=== PATIENT | female | born 1945 | race Caucasian/White ===

== ENCOUNTER 2018-01-03 18:08 | Inpatient (IN) | payer OTHER ==
[~2018-01-03] VITALS: Ht 157.5 cm; Wt 49.9 kg
[~2018-01-03 18:08] MED LIST: CIPRO500 MG; EVISTA60 MG PO; KLONOPIN1 MG/TAB PO; MICARDIS HCT1 UDTAB PO; NORVASC10 MG PO; PLAVIX75 MG PO; PRAVACHOL10 MG PO; SEPTRA DS TABLE1 TAB PO; SYNTHROID50 MCG PO; URIN D.S. TABLE1 TAB PO; ZOLOFT25 MG PO
[2018-01-05] MEDS ORDERED: MICARDIS80 MG PO (16:06)
[2018-01-05] MEDS ORDERED: SYNTHROID75 MCG PO (16:07)
[2018-01-05] MEDS ORDERED: PRAVASTATIN SOD40 MG PO (16:08)
[2018-01-05] MEDS ORDERED: ZOLPIDEM TART12.5 MG PO (16:08)
[2018-01-05] MEDS ORDERED: CLONAZEPAM0.5 M1 PO (16:09)
[2018-01-05] MEDS ORDERED: CLONAZEPAM2 MG PO (16:10)
[2018-01-05] MEDS ORDERED: PLAVIX75 MG PO (16:10)
[2018-01-05] MEDS ORDERED: ZANTAC300 MG PO (16:10)
[2018-01-05] MEDS ORDERED: EVISTA60 MG PO (16:11)
[2018-03-15] MEDS ORDERED: VITAMIN D350000 UNIT PO (08:21)
== END 2018-04-04 18:01 | disposition expired | DRG 3 ==
LOC: ER 18:08 → O/R 01-04 09:09 → ICU 01-04 09:09 → SEC-K 01-04 09:09 → O/R 01-04 11:00 → ICU 01-05 08:44
PROVIDERS: Surgery
PROC: 5A1955Z Respiratory Ventilation, Greater than 96 Consecutive Hours (ICD-10-PCS; 2018-01-04)
PROC: 0DQ70ZZ Repair Stomach, Pylorus, Open Approach (ICD-10-PCS; 2018-01-04)
PROC: 4A033R1 Measurement of Arterial Saturation, Peripheral, Percutaneous Approach (ICD-10-PCS; 2018-01-04)
PROC: 3E0F7GC Introduction of Other Therapeutic Substance into Respiratory Tract, Via Natural or Artificial Opening (ICD-10-PCS; 2018-01-04)
PROC: 05H633Z Insertion of Infusion Device into Left Subclavian Vein, Percutaneous Approach (ICD-10-PCS; 2018-01-04)
PROC: 0BH17EZ Insertion of Endotracheal Airway into Trachea, Via Natural or Artificial Opening (ICD-10-PCS; 2018-01-04)
PROC: 0DU907Z Supplement Duodenum with Autologous Tissue Substitute, Open Approach (ICD-10-PCS; principal; 2018-01-04 12:15)
PROC: 3E0436Z Introduction of Nutritional Substance into Central Vein, Percutaneous Approach (ICD-10-PCS; 2018-01-05)
PROC: 30233N1 Transfusion of Nonautologous Red Blood Cells into Peripheral Vein, Percutaneous Approach (ICD-10-PCS; 2018-01-07)
PROC: 02HV33Z Insertion of Infusion Device into Superior Vena Cava, Percutaneous Approach (ICD-10-PCS; 2018-01-07)
PROC: BW41ZZZ Ultrasonography of Abdomen and Pelvis (ICD-10-PCS; 2018-01-10)
PROC: BW21Y0Z Computerized Tomography (CT Scan) of Abdomen and Pelvis using Other Contrast, Unenhanced and Enhanced (ICD-10-PCS; 2018-01-12)
PROC: 5A09457 Assistance with Respiratory Ventilation, 24-96 Consecutive Hours, Continuous Positive Airway Pressure (ICD-10-PCS; 2018-01-13)
PROC: B246ZZZ Ultrasonography of Right and Left Heart (ICD-10-PCS; 2018-01-13)
PROC: 0W9J30Z Drainage of Pelvic Cavity with Drainage Device, Percutaneous Approach (ICD-10-PCS; 2018-01-16)
PROC: 0B110F4 Bypass Trachea to Cutaneous with Tracheostomy Device, Open Approach (ICD-10-PCS; 2018-01-29)
PROC: 09JK8ZZ Inspection of Nasal Mucosa and Soft Tissue, Via Natural or Artificial Opening Endoscopic (ICD-10-PCS; 2018-01-30)
PROC: 0DN80ZZ Release Small Intestine, Open Approach (ICD-10-PCS; 2018-02-05)
PROC: 0JB80ZZ Excision of Abdomen Subcutaneous Tissue and Fascia, Open Approach (ICD-10-PCS; 2018-02-05)
PROC: 0WQF0ZZ Repair Abdominal Wall, Open Approach (ICD-10-PCS; 2018-02-05)
PROC: 3E1038X Irrigation of Skin and Mucous Membranes using Irrigating Substance, Percutaneous Approach, Diagnostic (ICD-10-PCS; 2018-02-05)
PROC: BW21Y0Z Computerized Tomography (CT Scan) of Abdomen and Pelvis using Other Contrast, Unenhanced and Enhanced (ICD-10-PCS; 2018-02-13)
PROC: BW40ZZZ Ultrasonography of Abdomen (ICD-10-PCS; 2018-03-07)
PROC: BW21Y0Z Computerized Tomography (CT Scan) of Abdomen and Pelvis using Other Contrast, Unenhanced and Enhanced (ICD-10-PCS; 2018-03-20)
PROC: BD11YZZ Fluoroscopy of Esophagus using Other Contrast (ICD-10-PCS; 2018-03-23)
PROC: 0BC18ZZ Extirpation of Matter from Trachea, Via Natural or Artificial Opening Endoscopic (ICD-10-PCS; 2018-03-26)
PROC: 0CJS8ZZ Inspection of Larynx, Via Natural or Artificial Opening Endoscopic (ICD-10-PCS; 2018-03-26)
PROC: BW40ZZZ Ultrasonography of Abdomen (ICD-10-PCS; 2018-03-30)
DX: T81.4XXA Infection following a procedure, initial encounter (principal); A41.9 Sepsis, unspecified organism; R65.21 Severe sepsis with septic shock; J96.01 Acute respiratory failure with hypoxia; D65 Disseminated intravascular coagulation [defibrination syndrome]; K65.1 Peritoneal abscess; K26.1 Acute duodenal ulcer with perforation; K72.00 Acute and subacute hepatic failure without coma; B37.7 Candidal sepsis; A41.59 Other Gram-negative sepsis; A41.1 Sepsis due to other specified staphylococcus; N17.8 Other acute kidney failure; E87.2 Acidosis; B37.89 Other sites of candidiasis; A04.72 Enterocolitis due to Clostridium difficile, not specified as recurrent; R18.8 Other ascites; J90 Pleural effusion, not elsewhere classified; D62 Acute posthemorrhagic anemia; C93.10 Chronic myelomonocytic leukemia not having achieved remission; T81.32XA Disruption of internal operation (surgical) wound, not elsewhere classified, initial encounter; J95.04 Tracheo-esophageal fistula following tracheostomy; B37.0 Candidal stomatitis; B37.49 Other urogenital candidiasis; F17.210 Nicotine dependence, cigarettes, uncomplicated; I10 Essential (primary) hypertension; E03.8 Other specified hypothyroidism; I71.4 Abdominal aortic aneurysm, without rupture; J45.998 Other asthma; J44.9 Chronic obstructive pulmonary disease, unspecified; N20.0 Calculus of kidney; K44.9 Diaphragmatic hernia without obstruction or gangrene; K21.9 Gastro-esophageal reflux disease without esophagitis; Z78.1 Physical restraint status; J20.9 Acute bronchitis, unspecified; K66.0 Peritoneal adhesions (postprocedural) (postinfection); Z66 Do not resuscitate; B96.1 Klebsiella pneumoniae [K. pneumoniae] as the cause of diseases classified elsewhere; E87.6 Hypokalemia; B96.5 Pseudomonas (aeruginosa) (mallei) (pseudomallei) as the cause of diseases classified elsewhere